=== PATIENT | female | born 1975 | race African-American/Black ===

== ENCOUNTER 2017-10-30 03:14 | Emergency (ER) | payer OTHER ==
[~2017-10-30] VITALS: Ht 175.3 cm; Wt 77.0 kg
[2017-10-30] MEDS ORDERED: KETOROLAC 60MG/2ML VIAL IM ONE (04:45)
[2017-10-30 05:34] LABS: BASOPHILS % 1.2 % (0.0-2.0); EOSINOPHILS % 2.1 % (0.0-5.0); HEMATOCRIT. 42.5 % (36.0-48.0); HEMOGLOBIN. 14.5 g/dL (12.0-16.0); LYMPHOCYTES % 48.7 % (20.0-50.0); MEAN CORPUSCULAR HEMOGLOBIN 32.9 pg (28.0-32.0); MEAN CORPUSCULAR VOLUME 96.5 fL (81.0-99.0); PLATELET 300 x1000/uL (130-400); RED BLOOD CELL COUNT 4.41 mill/uL (4.2-5.4); RED CELL DISTRIBUTION WIDTH 13.3 % (11.6-14.6)
[2017-10-30 05:42] LABS: CARBON DIOXIDE 31 mEq/L (21-32); CHLORIDE 104 mEq/L (98-107); TROPONIN I < 0.02 ng/mL (0.00-0.04)
[2017-10-30 06:08] VITALS: BP 101/57
== END 2017-10-30 06:19 | disposition home or self-care (01) ==
LOC: ER 03:14
DX: R07.9 Chest pain, unspecified (principal); R05 Cough; F17.200 Nicotine dependence, unspecified, uncomplicated; F14.10 Cocaine abuse, uncomplicated
CPT/HCPCS: 36415; 71010; 80053; 81025; 84484; 85025; 85379; 93005; 96372; 99285; J1885; Z7610

== ENCOUNTER 2020-05-04 14:13 | Emergency (ER) | payer MEDICAID, OTHER ==
[~2020-05-04] VITALS: Ht 177.8 cm; Wt 79.0 kg
[2020-05-04 15:49] LABS: EOSINOPHILS % 4.4 % (0.0-5.0); HEMATOCRIT. 38.9 % (36.0-48.0); HEMOGLOBIN. 13.4 g/dL (12.0-16.0); LYMPHOCYTES % 41.7 % (20.0-50.0); MEAN CORPUSCULAR HEMOGLOBIN 32.5 pg (28.0-32.0); MEAN CORPUSCULAR VOLUME 94.3 fL (81.0-99.0); MONOCYTES % 6.4 % (2.0-8.0); NEUTROPHILS % 46.5 % (40.0-76.0); PLATELET 305 x1000/uL (130-400); RED BLOOD CELL COUNT 4.13 mill/uL (4.2-5.4); RED CELL DISTRIBUTION WIDTH 13.5 % (11.6-14.6)
[2020-05-04 15:50] LABS: CHLORIDE 108 mEq/L (98-107)
[2020-05-04] MEDS ORDERED: KETOROLAC 30MG/ML VIAL IV ONE (16:30)
[2020-05-04 16:49] LABS: CLARITY URINE TURBID (CLEAR); COLOR URINE YELLOW (YELLOW); KETONES URINE TRACE (NEGATIVE); LEUKOCYTE ESTERASE URINE TRACE (NEGATIVE); NITRITE URINE NEGATIVE (NEGATIVE); OCCULT BLOOD URINE 3+ (NEGATIVE); PH URINE 6.5 (4.5-8.0); PROTEIN URINE TRACE (NEGATIVE); SPECIFIC GRAVITY URINE 1.025 (1.005-1.030)
[2020-05-04 17:15] VITALS: BP 123/76
== END 2020-05-04 17:33 | disposition home or self-care (01) ==
LOC: ER 14:13
DX: R07.9 Chest pain, unspecified (principal); N39.0 Urinary tract infection, site not specified; B37.9 Candidiasis, unspecified; F17.200 Nicotine dependence, unspecified, uncomplicated; J45.909 Unspecified asthma, uncomplicated
CPT/HCPCS: 36415; 71045; 80053; 81003; 81025; 83880; 84484; 85025; 85379; 93005; 96374; 99285; J1885

== ENCOUNTER 2020-10-14 01:57 | Emergency (ER) | payer BC, MEDICAID ==
[~2020-10-14] VITALS: Ht 172.7 cm; Wt 77.0 kg
[2020-10-14] MEDS ORDERED: METHYLPREDNISOLONE SOD SUCC 125 MG/2 ML VIAL IV ONE (03:15)
[2020-10-14] MEDS ORDERED: FAMOTIDINE 20MG/2ML VIAL IV ONE (03:15)
[2020-10-14 06:30] VITALS: BP 130/69
== END 2020-10-14 06:30 | disposition home or self-care (01) ==
LOC: ER 01:57
DX: T78.40XA Allergy, unspecified, initial encounter (principal); J45.909 Unspecified asthma, uncomplicated; X58.XXXA Exposure to other specified factors, initial encounter; Z91.018 Allergy to other foods
CPT/HCPCS: 93005; 96374; 96375; 99284; J2930; J3490; Z7610

== ENCOUNTER 2022-01-14 01:05 | Emergency (ER) | payer BC, MEDICAID ==
[~2022-01-14] VITALS: Ht 175.3 cm; Wt 77.0 kg
[2022-01-14] MEDS ORDERED: ACETAMINOPHEN WITH CODEINE 300/30MG TABLET PO ONE (02:15)
[2022-01-14 02:54] VITALS: BP 130/82
[2022-01-14] MEDS ORDERED: IBUP-2029 MT (03:29)
[2022-01-14] MEDS ORDERED: T3 PO (03:29)
== END 2022-01-14 03:35 | disposition home or self-care (01) ==
LOC: ER 01:05
DX: S52.591A Other fractures of lower end of right radius, initial encounter for closed fracture (principal); J45.909 Unspecified asthma, uncomplicated; F12.10 Cannabis abuse, uncomplicated; Z91.018 Allergy to other foods; W10.8XXA Fall (on) (from) other stairs and steps, initial encounter; Y93.89 Activity, other specified; Y92.018 Other place in single-family (private) house as the place of occurrence of the external cause
CPT/HCPCS: 29125; 73110; 73130; 81025; 99284